=== PATIENT | female | born 1985 | race Two or more races ===

== ENCOUNTER 2020-07-22 10:51 | Emergency (ER) | payer OTHER ==
[~2020-07-22] VITALS: Ht 157.5 cm; Wt 59.4 kg
== END 2020-07-22 20:58 | disposition home or self-care (01) ==
LOC: ER 10:51
DX: K59.09 Other constipation (principal)

== ENCOUNTER 2021-06-21 08:39 | Outpatient (CLI) | payer OTHER | END 2021-06-21 08:53 | disposition home or self-care (01) | LOC: RX STUDY 08:39 | PROVIDERS: ATTEND Obstetrics & Gynecology | DX: N84.0 Polyp of corpus uteri (principal) ==

== ENCOUNTER 2024-01-31 15:42 | Outpatient (CLI) | payer OTHER | END 2024-01-31 15:43 | disposition home or self-care (01) | LOC: PRENATAL 15:42 | PROVIDERS: ATTEND Obstetrics & Gynecology Maternal & Fetal Medicine | DX: O36.80X0 Pregnancy with inconclusive fetal viability, not applicable or unspecified (principal); Z36.82 Encounter for antenatal screening for nuchal translucency; O09.519 Supervision of elderly primigravida, unspecified trimester; O09.819 Supervision of pregnancy resulting from assisted reproductive technology, unspecified trimester; Z36.9 Encounter for antenatal screening, unspecified; Z14.8 Genetic carrier of other disease; Z3A.11 11 weeks gestation of pregnancy ==

== ENCOUNTER → 2024-03-27 08:02 | Outpatient (CLI) | payer OTHER | END | disposition home or self-care (01) | LOC: PRENATAL 08:02 | PROVIDERS: ATTEND Obstetrics & Gynecology Maternal & Fetal Medicine | DX: O44.00 Complete placenta previa NOS or without hemorrhage, unspecified trimester (principal); O09.519 Supervision of elderly primigravida, unspecified trimester; O09.819 Supervision of pregnancy resulting from assisted reproductive technology, unspecified trimester; Z3A.19 19 weeks gestation of pregnancy ==

== ENCOUNTER → 2024-06-26 08:53 | Outpatient (CLI) | payer OTHER | END | disposition home or self-care (01) | LOC: PRENATAL 08:53 | PROVIDERS: ATTEND Obstetrics & Gynecology Maternal & Fetal Medicine | DX: O26.849 Uterine size-date discrepancy, unspecified trimester (principal); O36.8199 Decreased fetal movements, unspecified trimester, other fetus; O09.519 Supervision of elderly primigravida, unspecified trimester; O09.819 Supervision of pregnancy resulting from assisted reproductive technology, unspecified trimester; Z3A.33 33 weeks gestation of pregnancy ==

== ENCOUNTER 2024-07-28 09:42 | Outpatient (CLI) | payer OTHER ==
[~2024-07-28] VITALS: Ht 154.9 cm; Wt 66.2 kg
[2024-07-28 08:59] VITALS: BP 117/74
[2024-07-28] MEDS ORDERED: RINGERS SOLUTION,LACTATED 1,000 ML IV SCH (10:00)
[2024-07-28] MEDS ORDERED: CHILDREN'S ASPI81 MG PO (10:11)
[2024-07-28] MEDS ORDERED: PRENATA CHEWAB1 EACH PO (10:11)
[2024-07-28] MEDS ORDERED: VITAMIN D-40010 MCG PO (10:11)
[2024-07-28 10:24] LABS: PH,URINE 7.5 (5.0-8.0); URINE APPEARANCE Clear; URINE BILIRRUBIN Negative (NEGATIVE); URINE BLOOD Negative; URINE COLOR Yellow; URINE GLUCOSE Negative (NEGATIVE); URINE KETONE Negative (NEGATIVE); URINE LEUKOCYTE Negative; URINE NITRATE Negative; URINE PROTEIN Negative (NEGATIVE); URINE UROBILINOGEN 0.2 E.U./dl
[2024-07-28 10:28] LABS: URINE BACTERIA 23.2 uL (0.0-1933); URINE EPITHELIAL CELLS 21.8 uL (0.0-38.8); URINE WBC 2.6 uL (0.0-23.2)
[2024-07-28] MEDS ORDERED: TERBUTALINE SULFATE 1 MG/ML AMPUL SUBCUTANEO ONE ×2 (10:30→12:15)
[2024-07-28] MEDS ORDERED: TERBUTALINE SULFATE 2.5 MG TABLET PO ONE (10:30)
[2024-07-28 10:35] LABS: HEMATOCRIT 30.8 % (36.0-45.00); MEAN CELL VOLUME 90.8 fL (80.00-100.00); MEAN CORPUSCULAR HGB CONC 33.6 g/dl (32.0-36.0); PLATELET COUNT 182 K/uL (150-450); RED BLOOD COUNT 3.39 M/uL (4.00-6.00); RED CELL DISTRIBUTION WIDTH 13.3 % (11.5-14.5)
[2024-07-28 10:37] LABS: HEMOGLOBIN 10.3 g/dL (12.0-15.00); MEAN CORPUSCULAR HEMOGLOBIN 30.3 pg (27.00-32.0)
[2024-07-28 12:16] VITALS: BP 108/70
[2024-07-28 15:00] VITALS: BP 110/67
[2024-07-28 20:01] VITALS: BP 112/72
[2024-07-28 23:17] VITALS: BP 119/60
[2024-07-29 03:37] VITALS: BP 91/57
[2024-07-29 07:25] VITALS: BP 101/65
[2024-07-29] MEDS ORDERED: SOD FERRIC GLUC COMPLX/SUCROSE 125 MG in 0.9 % SODIUM CHLORIDE 100 ML IV SCH (09:00)
[2024-07-29 11:48] VITALS: BP 107/69
[2024-07-29 13:55] VITALS: BP 107/69
== END 2024-07-29 13:55 | disposition home or self-care (01) ==
LOC: OBS/DEL 09:42
PROVIDERS: Specialist; ATTEND Obstetrics & Gynecology
DX: O26.893 Other specified pregnancy related conditions, third trimester (principal); O26.849 Uterine size-date discrepancy, unspecified trimester; O36.8199 Decreased fetal movements, unspecified trimester, other fetus; O26.859 Spotting complicating pregnancy, unspecified trimester; O99.013 Anemia complicating pregnancy, third trimester; Z3A.36 36 weeks gestation of pregnancy

== ENCOUNTER 2024-08-14 13:15 | Inpatient (IN) | payer OTHER ==
[~2024-08-14] VITALS: Ht 154.9 cm; Wt 3.2 kg
[~2024-08-14 13:15] MED LIST: CHILDREN'S ASPI81 MG PO; PRENATA CHEWAB1 EACH PO; VITAMIN D-40010 MCG PO
[2024-08-14 14:27] LABS: PH,URINE 6.5 (5.0-8.0); URINE BILIRRUBIN Negative (NEGATIVE); URINE BLOOD Negative; URINE COLOR Yellow; URINE GLUCOSE Negative (NEGATIVE); URINE KETONE Negative (NEGATIVE); URINE LEUKOCYTE Negative; URINE NITRATE Negative; URINE PROTEIN Negative (NEGATIVE); URINE UROBILINOGEN 0.2 E.U./dl
[2024-08-14 14:28] LABS: URINE BACTERIA 368.3 uL (0.0-1933); URINE EPITHELIAL CELLS 79.9 uL (0.0-38.8); URINE RBC 3.3 uL (0.0-20.8); URINE WBC 18.8 uL (0.0-23.2)
[2024-08-14 14:30] LABS: HEMATOCRIT 36.2 % (36.0-45.00); HEMOGLOBIN 12.3 g/dL (12.0-15.00); MEAN CELL VOLUME 90.5 fL (80.00-100.00); MEAN CORPUSCULAR HEMOGLOBIN 30.7 pg (27.00-32.0); MEAN CORPUSCULAR HGB CONC 33.9 g/dl (32.0-36.0); PLATELET COUNT 205 K/uL (150-450); RED CELL DISTRIBUTION WIDTH 14.9 % (11.5-14.5)
[2024-08-14 15:02] LABS: INR 0.96; PARTIAL THROMBOPLASTIN TIME 25.1 SECONDS (22.0-34.0); PROTHROMBIN TIME 10.5 SECONDS (9.0-11.5)
[2024-08-14 15:03] LABS: ALBUMIN 2.9 gm/dL (3.4-5.0); BILIRUBIN TOTAL 0.24 mg/dL (0.3-1.2); CALCIUM 8.9 mg/dL (8.5-10.1); CREATININE SERUM 0.59 mg/dL (0.55-1.02); GFR 112.89; GLOBULINA 3.7 G/DL (2.4-3.5); POTASSIUM 3.87 mEq/L (3.5-5.1); TOTAL PROTEIN 6.6 gm/dL (6.4-8.2)
[2024-08-14 15:41] LABS: URINE APPEARANCE CLEAR
[2024-08-18 05:54] VITALS: BP 104/70
[2024-08-18] MEDS ORDERED: IRON240 MG PO (07:16)
[2024-08-18] MEDS ORDERED: RINGERS SOLUTION,LACTATED 1,000 ML IV SCH ×2 (07:30→21:15)
[2024-08-18 07:40] VITALS: BP 110/63
[2024-08-18] MEDS ORDERED: OXYTOCIN 500 ML IV SCH (08:15)
[2024-08-18 11:31] VITALS: BP 105/65
[2024-08-18 15:30] VITALS: BP 111/63
[2024-08-18] MEDS ORDERED: CEFAZOLIN SODIUM 1,000 MG VIAL IV ONE (19:00)
[2024-08-18] MEDS ORDERED: ERYTHROMYCIN BASE OPHT 1GM EACH TUBE OP ONE (19:45)
[2024-08-18] MEDS ORDERED: OXYTOCIN 10 UNITS/ML VIAL IV ONE (19:45)
[2024-08-18] MEDS ORDERED: ONDANSETRON HCL 2 MG/ML VIAL IV ONE (21:15)
[2024-08-18] MEDS ORDERED: OXYTOCIN 1,000 ML IV SCH (21:15)
[2024-08-18] MEDS ORDERED: KETOROLAC TROMETHAMINE 30 MG VIAL IV NR (21:15)
[2024-08-18] MEDS ORDERED: MORPHINE SULFATE 4 MG/ML CARTRIDGE IV PRN (21:15)
[2024-08-18] MEDS ORDERED: ONDANSETRON HCL 2 MG/ML VIAL IV PRN (21:15)
[2024-08-18] MEDS ORDERED: MORPHINE SULFATE 4 MG/ML VIAL IV ONE ×2 (21:30→22:00)
[2024-08-19] MEDS ORDERED: KETOROLAC TROMETHAMINE 30 MG VIAL IV SCH
[2024-08-19] MEDS ORDERED: ACETAMINOPHEN 325 MG TABLET PO SCH
[2024-08-19 00:52] VITALS: BP 99/65
[2024-08-19 06:38] LABS: HEMATOCRIT 29.4 % (36.0-45.00); MEAN CELL VOLUME 90.6 fL (80.00-100.00); MEAN CORPUSCULAR HEMOGLOBIN 31.6 pg (27.00-32.0); MEAN CORPUSCULAR HGB CONC 34.9 g/dl (32.0-36.0); PLATELET COUNT 177 K/uL (150-450); RED BLOOD COUNT 3.25 M/uL (4.00-6.00); RED CELL DISTRIBUTION WIDTH 14.8 % (11.5-14.5)
[2024-08-19 06:45] LABS: HEMOGLOBIN 10.3 g/dL (12.0-15.00)
[2024-08-19 08:16] VITALS: BP 102/63
[2024-08-19] MEDS ORDERED: PNV,CALCIUM 72/IRON/FOLIC ACID 1 TAB TABLET PO SCH (09:00)
[2024-08-19] MEDS ORDERED: SIMETHICONE 125 MG CAPSULE PO SCH (09:00)
[2024-08-19] MEDS ORDERED: IBUprofen 400 MG TABLET PO SCH (09:00)
[2024-08-19 17:10] VITALS: BP 91/61
[2024-08-20] VITALS: BP 101/63
[2024-08-20 09:01] VITALS: BP 116/73
[2024-08-20] MEDS ORDERED: CHLORHEXIDINE GLUCONATE 120 ML BOTTLE TOP SCH (09:44)
== END 2024-08-20 14:33 | disposition home or self-care (01) | DRG 788 ==
LOC: LDR 08-18 05:33 → O/R 08-18 19:18 → OB/GYN 08-18 20:33
PROVIDERS: Obstetrics & Gynecology; ADMIT Obstetrics & Gynecology; ATTEND Obstetrics & Gynecology
PROC: 4A1HXCZ Monitoring of Products of Conception, Cardiac Rate, External Approach (ICD-10-PCS; 2024-08-18)
PROC: 10D00Z1 Extraction of Products of Conception, Low, Open Approach (ICD-10-PCS; principal; 2024-08-18 18:15)
DX: O82 Encounter for cesarean delivery without indication (principal); O62.1 Secondary uterine inertia; Z3A.39 39 weeks gestation of pregnancy; Z37.0 Single live birth